=== PATIENT | male | born 1965 | race African-American/Black ===

== ENCOUNTER 2021-12-19 13:49 | Emergency (ER) | payer BC, SELFPAY ==
--- NOTE | ~2021-12-19 | XR_ITS ---
EXAMINATION: XR shoulder RT min 2V DATE: 12/19/2021 14:46 INDICATION: Right shoulder pain after pulling TECHNIQUE: AP internally and externally rotated, AP oblique externally rotated and axillary views of the right shoulder were obtained. COMPARISON: None FINDINGS: Normal alignment. No fracture.Moderate right acromioclavicular and mild glenohumeral osteoarthritis. Visualized portion of the right lung are clear. Soft tissues are unremarkable. IMPRESSION: Moderate right acromioclavicular and mild glenohumeral osteoarthritis. Reviewed, dictated and finalized at location A.
[2021-12-19 14:03] VITALS: BP 156/95; PULSE 85; RESP 18; TEMP 36.6; O2SAT 98
--- NOTE | 2021-12-19 14:28 | ED.UPPEXIN ---
HPI - Extremity Injury (Upper) General Chief Complaint: Extremity Injury, Upper Stated Complaint: Right shoulder Pain Time Seen by Provider: 12/19/21 14:28 Source: patient Mode of arrival: ambulatory Limitations: no limitations History of Present Illness HPI narrative: 56-year-old male presented for complaint of right shoulder pain worsening over the past 1 to 2 weeks after injury. 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 He states since then it has spread from the front shoulder to the right chest and neck and down to the elbow. Denies numbness, tingling, weakness of the right arm. Has full range of motion but reports pain with movement. Rates pain 11 out of 10. Has been taking Tylenol without relief. Related Data Home Medications Medication Instructions Recorded Confirmed amlodipine 10 mg tablet 10 mg DAILY 12/19/21 12/19/21 aspirin 81 mg capsule 81 mg PO DAILY 12/19/21 12/19/21 furosemide 20 mg tablet 20 mg DAILY 12/19/21 12/19/21 hydrochlorothiazide 25 mg tablet 25 mg DAILY 12/19/21 12/19/21 losartan 100 mg tablet 100 mg DAILY 12/19/21 12/19/21 metoprolol tartrate 25 mg tablet 25 mg DAILY 12/19/21 12/19/21 omeprazole 20 mg capsule,delayed 20 mg DAILY 12/19/21 12/19/21 release oxybutynin chloride 5 mg tablet 5 mg DAILY 12/19/21 12/19/21 simvastatin 20 mg tablet 20 mg DAILY 12/19/21 12/19/21 solifenacin 10 mg tablet 10 mg PO DAILY 12/19/21 12/19/21 Allergies Allergy/AdvReac Type Severity Reaction Status Date / Time Sulfa (Sulfonamide Allergy Itching Verified 12/19/21 14:11 Antibiotics) Review of Systems Review of Systems: CONSTITUTIONAL: Denies body aches, fever, chills ENT: Denies rhinorrhea, congestion CARDIOVASCULAR: Denies chest pain, palpitations, or edema. RESPIRATORY: Denies cough or dyspnea. GASTROINTESTINAL: Denies abdominal pain, nausea, vomiting, or diarrhea. SKIN: Denies rash, itching, or wounds. MUSCULOSKELETAL: Denies back pain or myalgia. NEUROLOGIC: Denies headache, numbness, tingling, or weakness. All systems reviewed & are unremarkable except as noted in HPI and below PMFSH Comments At time of signature, I have reviewed and agree with nursing past medical, surgical, social and family history unless otherwise noted. Please see nursing chart for further information. There is no relevant family history pertinent to the presenting complaint Exam Narrative: GENERAL: Well-appearing EYES: conjunctivae clear NECK: No cervical VPT CHEST: No respiratory distress. HEART: Regular rate and rhythm. Normal and equal peripheral pulses. EXTREMITIES: Right anterior shoulder tender with deep palpation. Right arm has normal strength and sensation, normal range of motion at shoulder but endorses pain with movement. No ecchymosis. No open wounds or obvious deformity; shoulder alignment normal, pulse palpable and equal bilaterally, skin warm, dry, pink. Capillary refill less than 3 seconds. SKIN: Warm, dry, no rash. NEURO: Alert and oriented x3. Course Course Emergency Course: Patient is aware of diagnosis, understands and agrees to treatment plan. Anticipatory guidance given. Patient agrees to follow-up as directed and is aware of reasons to seek care at the emergency department. Portions of this record may have been created with voice recognition software Level of Care: Express Care Visit Vital Signs Vital signs: Vital Signs Temperature 97.8 F 12/19/21 14:03 Pulse Rate 85 12/19/21 14:03 Respiratory Rate 18 12/19/21 14:03 Blood Pressure 156/95 H 12/19/21 14:03 Pulse Oximetry 98 12/19/21 14:03 Oxygen Delivery Room Air 12/19/21 14:03 Temperature 97.8 F 12/19/21 14:03 Pulse Rate 85 12/19/21 14:03 Respiratory Rate 18 12/19/21 14:03 Blood Pressure 156/95 H 12/19/21 14:03 Pulse Oximetry 98 12/19/21 14:03 Oxygen Delivery Room Air 12/19/21 14:03 Reviewed MDM - Extremity Injury (Upper) MDM Narrative Medical decision
== END 2021-12-19 15:16 | disposition home or self-care (01) ==
PROVIDERS: Emergency Provider Nurse Practitioner Family
DX: M25.511 Pain in right shoulder (principal); E78.00 Pure hypercholesterolemia, unspecified; I10 Essential (primary) hypertension; N32.81 Overactive bladder
CPT/HCPCS: 73030; 99213; G0463